=== PATIENT | female | born 1930 | race Caucasian/White ===

== ENCOUNTER 2016-06-09 19:50 | Inpatient (IN) | payer MEDICARE ==
[2016-06-09 20:44] VITALS: BP 163/89
[2016-06-09] MEDS ORDERED: Maalox 30 mL Cup PO PRN (20:45)
[2016-06-09] MEDS ORDERED: Magnesium Hydroxide (MOM) 30 mL UDC PO PRN (20:45)
[2016-06-10] MEDS: Multivitamin Tab PO SCH (09:50)
[2016-06-10] MEDS ORDERED: WARFARIN SODIUM 4 MG PO SCH (12:45)
[2016-06-10 14:29] LABS: INR 3.54 (0.5-1.4); PROTHROMBIN TIME (TEST) 39.3 SECONDS (9.5-11.5)
--- NOTE | 2016-06-10 14:36 | History & Physical ---
ADMIT DATE: 06/09/2016 HISTORY OF PRESENT ILLNESS: 5150 hold. HISTORY OF PRESENT ILLNESS: The patient is an 85-year-old white female who has been transferred from [facility] ED. The patient presented to [facility] ED with psychotic problem and agitation and not suicidal ideation. The patient was brought in by police on 5150 hold. She has history of dementia and Alzheimer's. The patient's neighbors called police because patient was sending neighbor threatening letters. Police noted that the patient exhibiting bizarre with fixed delusions. No suicidal ideation. No homicidal ideation. REVIEW OF SYSTEMS: See history of present illness. ALLERGIES: DILAUDID. MEDICATIONS: See medication reconciliation form. PAST SURGICAL HISTORY: Negative. FAMILY HISTORY: Noncontributory. SOCIAL HISTORY: No reports of smoking or drug use. PAST MEDICAL HISTORY: GERD, hypertension, chronic pain, chronic anticoagulation therapy, dementia (Alzheimer's). PHYSICAL EXAMINATION: GENERAL: The patient is awake, nontoxic in appearance. VITAL SIGNS ON ADMISSION: Temperature 97.5, pulse of 92, blood pressure 163/89, O2 sat 96% on room air. HEENT: Normocephalic, atraumatic. Extraocular movements intact. Pupils reactive. Oropharynx clear. NECK: Supple. No thyromegaly. No lymphadenopathy. RESPIRATORY: Clear. No wheezes or rhonchi. CARDIOVASCULAR: S1, S2, no murmurs, rubs, gallops. GASTROINTESTINAL: Soft, nontender, nondistended. Positive bowel sounds. GENITOURINARY: No CVA tenderness. No suprapubic tenderness. BACK: No midline tenderness. EXTREMITIES: Equal pulses bilaterally. No cyanosis, clubbing or edema. PSYCHIATRIC: Negative. SKIN: Negative. NEUROLOGIC: Cranial nerves 2-12 intact. Extraocular movements are intact. Sensation intact. Neurovascular intact. Bilateral muscle strength grossly normal. IMPRESSION: 1. Delusions. 2. 5150 hold. 3. Gastroesophageal reflux disease. 4. Hypertension. 5. Chronic pain. 6. Chronic anticoagulation therapy. 7. ALLERGIES TO DILAUDID. PLAN: The patient admitted to the Geropsych Unit at [facility]. Psychiatry consultation, Dr. Hicks. We will obtain further labs and consultations as needed. [facility]# [id number] [facility]
--- NOTE | 2016-06-10 21:57 | Psychosocial Evaluation ---
DATE OF SERVICE: 06/10/2016 IDENTIFYING DATA: The patient is an 85-year-old woman admitted here on 5150 for being gravely disabled as per the information. CHIEF COMPLAINT: "I do not know why they have to bring me." HISTORY OF PRESENT ILLNESS: This is the first psychiatric hospitalization for this patient. The patient is reported to have been hate letters at other peoples' homes in the area. The patient is not making any sense and police were called. The patient was evaluated by the [facility]'s Department and was placed on 5150 for being gravely disabled and has been brought over here. When I asked about the year, she was mentioning that she was in 1969. During the interview, the patient is noted to be very angry and upset for being in here stating that she was never on a psychotropic medication and there was no reason for her to see a psychiatrist. The patient has been getting easily irritable at the time of the evaluation. PAST PSYCHIATRIC HISTORY: Details are not known. MEDICAL HISTORY: Denies any major medical problems. PHYSICAL EXAMINATION: Requested to be done by Dr. Gutierrez. SUBSTANCE ABUSE HISTORY: None. PHYSICAL OR SEXUAL ABUSE HISTORY: None. LEGAL PROBLEMS: None at this time. STRENGTH AND ASSETS: The patient is motivated for treatment. ALLERGIES: The patient is reporting that she is allergic to DILAUDID. MENTAL STATUS EXAMINATION: The patient is an 85-year-old thin built, superficially cooperative. Eye contact is poor. Mood is noted to be irritable. Affect is constricted. Insight and judgment are noted to be very much impaired. Impulse control is noted to be poor. The patient is reported to have been writing the hate letters and distributing to the neighbors. The patient during the interviewed has been denying any of these issues and is stating that there is no reason for her to be in here. The patient denies any active hallucinations. No delusions are noted. The patient's coping skills are noted to be poor. The patient has been having difficult time to cope with the stress. The patient's short-term and long-term memory appeared to be fair. The patient is stating that she needs to get back and there are people waiting for her at home. DIAGNOSTIC IMPRESSION: Psychotic disorder, not otherwise specified. PLAN: To closely monitor the patient. I encouraged the patient to verbalize the concerns rather than to act out. JOB# [id number]
[2016-06-11] MEDS: Multivitamin Tab PO SCH (08:17)
[2016-06-11 09:46] LABS: % BASOPHILS 0.4 % (0.0-2.0); % EOSINOPHILS 0.2 % (0.0-5.0); % LYMPHOCYTES 9.6 % (20.0-50.0); % MONOCYTES 6.1 % (2.0-10.0); % NEUTROPHILS 83.7 % (40.0-80.0); HEMATOCRIT 39.2 % (35.0-45.0); HEMOGLOBIN 13.2 gm/dL (11.7-16.1); MEAN CELL VOLUME 90.1 fl (81-100); MEAN CORPUSCULAR HEMOGLOBIN 30.3 pg (27.0-31.0); MEAN CORPUSCULAR HGB CONC 33.6 pg (28.0-36.0); MEAN PLATELET VOLUME 8.4 fl; NEUTROPHILE ABSOLUTE 7.3 Th/cmm (1.8-8.0); PLATELET COUNT 200 Th/cmm (150-400); RED BLOOD COUNT 4.35 Mil/cmm (3.80-5.20); WHITE BLOOD COUNT 8.6 Th/cmm (4.8-10.8)
[2016-06-11 10:19] LABS: INR 2.24 (0.5-1.4); PROTHROMBIN TIME (TEST) 24.3 SECONDS (9.5-11.5)
[2016-06-11 10:23] LABS: ANION GAP 10.5 (7.0-16.0); BUN - UREA NITROGEN 22 mg/dL (7-25); BUN/CREATININE RATIO 16.9; CALCIUM SERUM 9.6 mg/dL (8.6-10.3); CARBON DIOXIDE 25.4 mEq/L (21.0-31.0); CHLORIDE 104 mEq/L (98-107); CREATININE - SERUM 1.3 mg/dL (0.6-1.2); GLUCOSE 140 mg/dL (70-105); POTASSIUM SERUM 3.9 mEq/L (3.5-5.1); SODIUM SERUM 136 mEq/L (136-145)
[2016-06-12] MEDS: Hydrocodone/APAP 5mg/325mg Tab PO PRN ×2 (03:33→08:36)
[2016-06-12] MEDS: Multivitamin Tab PO SCH (08:36)
--- NOTE | 2016-06-12 17:42 | Progress Notes ---
DATE: 06/11/2016 SUBJECTIVE: The patient is seen on inpatient unit. The patient has history of psychosis, paranoid delusions, irritability and anxiety. She has been on 5150 for bizarre behavior, not knowing where she was, confusion, ____. The patient has a history of psychosis, possible dementia. The patient's family is concerned for care and well being. She has history of repeated problems with his psychosis. The patient at this time says she is feeling good. She is tolerating medications. She has no side effects. She has been calm and cooperative today. She has continued paranoia at minimal insight, delusional content. Plan at this time is to initiate trial of Risperdal for psychosis 0.5 mg at bedtime. We will work with patient and family regarding discharge plan. We will place the patient on 14-day hold. JOB# [id number]
--- NOTE | 2016-06-13 00:47 | Progress Notes ---
DATE: 06/11/2016 SUBJECTIVE: The patient is still in the Geropsych Unit. The patient is off IV fluids. The patient on anticoagulation therapy. OBJECTIVE: VITAL SIGNS: Temperature 98.1, pulse 100, blood pressure 130/91, respiratory rate 19, O2 saturation is 96% on room air. CARDIOVASCULAR: S1 and S2. RESPIRATORY: Clear. GASTROINTESTINAL: Soft, positive bowel sounds. LABORATORY DATA: Hematology: WBC 8.6, hemoglobin 13.2, hematocrit 39.2, platelet count of 200, 82% neutrophils, 9% lymphocytes. ____ 24.3, INR ____. Chemistry: Sodium 136 potassium ____ anion gap 10, BUN 22, creatinine ____, glucose is 140, calcium 9.6. Microbiology: MRSA screening from 06/09/2016, negative. RADIOLOGY: No new results. ASSESSMENT: 1. 5150 hold. 2. Delusion disorder with acute psychosis. 3. Gastroesophageal reflux disease. 4. Hypertension. 5. Chronic pain. 6. Chronic anticoagulation therapy. 7. ALLERGIES TO DILAUDID. 8. Atrial fibrillation (per the patient). PLAN: Continue current medication and treatment dosing. Awaiting Cardiology consultation. Further recommendation per consults. Obtain labs on Saturday. JOB# [id number] [facility]
--- NOTE | 2016-06-13 08:59 | Progress Notes ---
DATE: 06/12/2016 The patient was seen in inpatient unit. The patient is showing progress on treatment. She feels her medicines are helping control of symptoms, well tolerated. She has no side effects. She is denying paranoia or suicidal thoughts today. I did speak with the patient's family members regarding after care plan. Plan outpatient psychiatric followup . [facility]# [id number]
[2016-06-13] MEDS: Multivitamin Tab PO SCH (09:15)
--- NOTE | 2016-06-13 17:28 | Progress Notes ---
DATE: 06/12/2016 SUBJECTIVE: The patient is awake and alert. The patient is on anticoagulation therapy. Pharmacy managing Coumadin dosing. The patient still in the Geropsych Unit. Per Psychiatry, tolerating medications. The patient continues to have paranoia with minimal insight and delusional content. The patient is placed on 14-day hold. OBJECTIVE: VITAL SIGNS: Temperature 97.8, pulse of 96, blood pressure 120/69, respiratory rate 20, O2 saturation is 96% on room air. CARDIOVASCULAR: S1 and S2. RESPIRATORY: Clear. GASTROINTESTINAL: Soft, positive bowel sounds. LABORATORY DATA: Hematology: WBC 8.6, hemoglobin 13.2, hematocrit 39.2, platelet count of 200, 82% neutrophils, 9% lymphocytes. PT 24.3, INR 2.24. Chemistry: Sodium 136, potassium 3.9, chloride 104, bicarb 25, anion gap 10, BUN 24, creatinine per labs. GFR is unavailable, glucose is 140, calcium 9.6. MICROBIOLOGY: MRSA screening from June 09, negative. RADIOLOGY: No new results. ASSESSMENT: 1. 5149 hold. 2. Delusion disorder. 3. Psychosis. 4. Gastroesophageal reflux disease. 5. Hypertension. 6. Chronic pain. 7. Chronic anticoagulation therapy. 8. ALLERGIES TO DILAUDID. PLAN: Continue current medication and treatment. Pharmacy to manage Coumadin dosing. Further recommendation per Psychiatry. We will obtain labs in a.m. JOB# [id number] [facility]
--- NOTE | 2016-06-14 05:37 | Progress Notes ---
DATE: 06/13/2016 SUBJECTIVE: The patient is awake. The patient is in Jr-Psych unit. OBJECTIVE: VITAL SIGNS: Temperature on room air. CARDIOVASCULAR: S1 and S2. RESPIRATORY: Clear. GASTROINTESTINAL: Soft, positive bowel sounds. LABORATORY DATA: No labs for today. ASSESSMENT: 1. 5150 hold. 2. Delusion disorder. 3. Acute psychosis. 4. Gastroesophageal reflux disease. 5. Hypertension. 6. Chronic pain. 7. Chronic anticoagulation therapy. 8. ALLERGIES TO DILAUDID. 9. History of atrial fibrillation. PLAN: Continue current Coumadin dosing. Further recommendation per consults. JOB# [id number] [facility]
--- NOTE | 2016-06-29 03:35 | Discharge Summary ---
DATE OF DISCHARGE: 06/13/2016 ADMITTING DIAGNOSIS: Psychosis, not otherwise specified. JUSTIFICATION FOR ADMISSION: The patient was placed on 5150 for grave disability. HISTORY OF PRESENT ILLNESS: The patient was brought in on hold status. She has been having bizarre thoughts, delusional beliefs, irritability, and confusion, unable to take care of herself. She was put on hold by police for grave disability for inability to care for herself. TREATMENT COURSE: The patient was admitted, treated, and diagnosed for dementia, psychosis, and confusion. She is having paranoid thoughts. The patient was on trial medication, trial of Ambien and Risperdal. The patient tolerated Risperdal 0.5 mg at bedtime. She felt medicines were helping her significantly. She showed improvement in her coping skills. We were able to contact family members regarding aftercare plan. At the time of discharge, she was significantly improved, was able to be discharged home with outpatient followup. She agreed to take medications, and she agrees to follow up with outpatient psychiatric care. At the time of discharge, she had no side effects with suicidal statements. DIFFERENTIAL DIAGNOSIS: AXIS I: Psychosis, not otherwise specified. AXIS II: Deferred. AXIS III: Pain. PLAN: To discharge home with outpatient psychiatric followup. [facility]# [id number]
== END 2016-06-13 13:00 | disposition home or self-care (01) | DRG 885 ==
LOC: GERO 19:50
PROVIDERS: ADMIT Psychiatry & Neurology Psychiatry; ATTEND Psychiatry & Neurology Psychiatry
DX: F29 Unspecified psychosis not due to a substance or known physiological condition (principal); G30.9 Alzheimer's disease, unspecified; F02.80 Dementia in other diseases classified elsewhere, unspecified severity, without behavioral disturbance, psychotic disturbance, mood disturbance, and anxiety; I48.91 Unspecified atrial fibrillation; F22 Delusional disorders; K21.9 Gastro-esophageal reflux disease without esophagitis; G89.29 Other chronic pain; Z88.8 Allergy status to other drugs, medicaments and biological substances
CPT/HCPCS: 36415-UA; 80048-TC; 85025-TC; 85610-TC; 90899; 97530; X3904; Z7610